=== PATIENT | female | born 1995 | race Caucasian/White ===

== ENCOUNTER 2020-03-06 19:59 | Emergency (ER) | payer BC, OTHER ==
[~2020-03-06] VITALS: Ht 172.7 cm; Wt 101.6 kg
[2020-03-06 20:03] VITALS: BP 157/89
--- NOTE | 2020-03-06 20:18 | NUR ---
24 y/o female bib self for right flank pain. Pain is an 8/10 pressure like pain that starts from the lower abdomen and suprapubic region to the right flank. Pain is unprovoked but is also elicited when pressure is placed on the affected areas. +n/v x2 today. Last bowel movement was 03/05/20. Abdominal sounds heard throughout. Denies any pregnacy. JHOANA made aware. Bed rails x1.Placed on monitor. Will continue to monitor. PMH: Denies Allergies:NKDA Addendum: 03/06/20 at 2031 by MEDSIRISHA Patient also states she has chills; denies any fever.
[2020-03-06] MEDS ORDERED: KETOROLAC 30 MG/ML VIAL IVP ONE ×2 (20:35→21:50)
[2020-03-06] MEDS ORDERED: NACL 0.9% 1,000 ML IV ONE (20:35)
[2020-03-06] MEDS ORDERED: ONDANSETRON 4 MG/2 ML VIAL IVP ONE (20:35)
[2020-03-06 21:01] LABS: APPEARANCE,URINE SL CLOUDY (CLEAR); BILIRUBIN,URINE NEGATIVE (NEGATIVE); BLOOD, URINE 1+ (NEGATIVE); COLOR,URINE YELLOW (YELLOW); LEUKOCYTE ESTERASE ,URINE NEGATIVE (NEGATIVE); NITRITE, URINE NEGATIVE (NEGATIVE); UGLUCOSE NEGATIVE (NEGATIVE)
--- NOTE | 2020-03-06 21:09 | NUR ---
Patient taken to CT.
[2020-03-06 21:14] LABS: BASOPHILS # (AUTO) 0.2 K/uL (0.00-0.22); BASOPHILS % (AUTO) 1.4 % (0.0-2.0); EOSINOPHILS # (AUTO) 0.1 K/uL (0-0.4); EOSINOPHILS % (AUTO) 0.4 % (0.0-4.0); HEMATOCRIT 41.6 % (36-48); HEMOGLOBIN 13.8 g/dL (12.0-16.0); LYMPHOCYTES # (AUTO) 1.2 K/uL (2.5-16.5); LYMPHOCYTES % (AUTO) 9.7 % (20.5-51.1); MEAN CORPUSCULAR HEMOGLOBIN 30 pg (27-31); MEAN CORPUSCULAR HGB CONC 33 g/dL (33-37); MEAN CORPUSCULAR VOLUME 89.4 fL (80-94); MONOCYTES # (AUTO) 0.5 K/uL (0.8-1.0); MONOCYTES % (AUTO) 3.7 % (1.7-9.3); NEUTROPHILS # (AUTO) 10.6 K/uL (1.8-7.7); NEUTROPHILS % (AUTO) 84.8 % (42.2-75.2); PLATELET COUNT (AUTO) 334 K/uL (140-450); RED BLOOD CELL COUNT(AUTO) 4.66 MIL/uL (4.20-5.40); RED CELL DISTRIBUTION WIDTH 13.8 % (11.6-13.7); WHITE BLOOD COUNT (AUTO) 12.5 K/uL (4.8-10.8)
--- NOTE | 2020-03-06 21:18 | NUR ---
patient back from ct. placed on monitor.
--- NOTE | 2020-03-06 21:22 | NUR ---
Patient rates pain at a 5/10 and denies n/v at this time.
[2020-03-06 21:27] LABS: ALBUMIN 4.4 g/dL (3.4-5.0); ANION GAP 15.3 (8-16); CARBON DIOXIDE 25.1 mmol/L (21-32); CREATININE 0.8 mg/dL (0.6-1.3); POTASSIUM 4.4 mmol/L (3.5-5.1); TOTAL BILIRUBIN 0.3 mg/dL (0.0-1.0)
[2020-03-06 21:28] LABS: WBC,URINE 0-5 /HPF (0-5)
[2020-03-06] MEDS ORDERED: HYDROcodone/APAP 5/325 MG 1 TAB TAB PO ONE (21:50)
--- NOTE | 2020-03-06 21:50 | NUR ---
Dr. Paniagua at bedside.
[2020-03-06 22:14] VITALS: BP 135/82
--- NOTE | 2020-03-06 22:14 | NUR ---
Patient discharged with v/s stable. Written and verbal after care instructions given and explained. Patient alert, oriented and verbalized understanding of instructions. Ambulatory with steady gait. All questions addressed prior to discharge. ID band removed. Patient advised to follow up with PMD. Rx of Naprosyn; Zofran; NOrco given. Patient educated on indication of medication including possible reaction and side effects. Opportunity to ask questions provided and answered.
--- NOTE | 2020-03-07 09:03 | NUR ---
LATE ENTRY--CONFIRMED WITH RN END TIME OF 0030 03/06/20
== END 2020-03-06 22:14 | disposition home or self-care (01) ==
LOC: MED 19:59
DX: N20.1 Calculus of ureter (principal); R10.9 Unspecified abdominal pain
CPT/HCPCS: 36415; 74176; 80053; 81001; 81025; 83690; 85025; 96361; 96374; 96375; 96376; 99284; J1885; J2405; J7030